=== PATIENT | female | born 1990 | race Hispanic/Latino ===

== ENCOUNTER 2016-09-18 09:38 | Emergency (ER) | payer OTHER ==
[~2016-09-18] VITALS: Ht 154.9 cm; Wt 48.1 kg
[~2016-09-18 09:38] MED LIST: ASPI-1148 PO; CIPR-231 PO; CYCL5TAB PO; FERR-83 PO; PNV1TABL72 PO; RANI150T11 PO
[2016-09-18 09:45] VITALS: BP 136/81; PULSE 65; RESP 14; O2SAT 100
--- NOTE | 2016-09-18 10:06 | ED.REPORT ---
HPI-General Illness Date of Service Sep 18, 2016 ED Provider: Leonarda Montano MD The pt is 26 y/o female w/ a hx of a UTI, pyelonephritis, perirenal abscess, renal abscess, and tubulo interstitial nephritis presenting to the ED complaining of left flank pain onset 4 days ago. She is also experiencing a headache, dizziness, and R arm pain. Her last period was in the beginning of August and normal and has been using an IUD for the last ten years. Denies, fever , dysuria, diarrhea, or vomiting. Nursing Notes Stated Complaint: FELLING WEAK/DIZZY Chief Complaint: L flank pain Nursing Notes Reviewed: Yes Allergies: Coded Allergies: No Known Drug Allergies (Unverified Allergy, Unknown, 01/13/16) Uncoded Allergies: nkda (Allergy, Unknown, 01/13/16) Scheduled Ciprofloxacin (Cipro) 500 Mg Tablet 500 MG PO BID Ferrous Sulfate (Ferrous Sulfate) 325 Mg Tablet 325 MG PO TIDWM Pnv with Ca,No.72/Iron/FA ( Plus Tablet) 1 Each Tablet 1 TAB PO DAILY Ranitidine (Zantac) 150 Mg Tablet 150 MG PO BID Scheduled PRN Aspirin/Acetaminophen/Caffeine (Kfysrmg-Kbwhjkmghfwsr-Aghk Tab) 250 Mg-250 Mg- 65 Mg Tablet 1 EACH PO DAILY PRN PRN Headache Cyclobenzaprine (Cyclobenzaprine) 5 Mg Tablet 5 MG PO TID PRN PRN For Spasm General Time Seen by MD: 09:57 Chief Complaint Other (L flank pain ) Hx Obtained From: Patient Arrived By: Walk-in Sudden in Onset?: Yes Onset Occurred: 4 days ago Symptom Duration: Since onset Recent Healthcare: Recent doctor visit, Recent hospitalization Similar Sx Previous: Yes Past Medical History Past Medical History G 3 P3 UTI Pyelonephritis Perirenal abscess Renal abscess Tubulo interstitial nephritis Past Surgical History Denies Smoking History Never Smoker Social History Alcohol Use: "Social" Other Social History: Lives with children Ambulatory Status Independent Review of Systems Full Review of Systems Constitutional: Denies: Fever GI: Denies: Diarrhea, Vomiting Female: Reports: Flank pain (L side), Denies: Dysuria Musculoskeletal: Reports: Extremity pain (R arm ) Neurologic: Reports: Dizziness, Headache Complete sys rev & neg: except as marked. Physical Exam Vital Signs Vital Signs Date Time Temp Pulse Resp B/P Pulse Ox O2 Delivery O2 Flow Rate FiO2 09/18/16 14:11 36.8 58 16 108/68 98 Room Air 09/18/16 09:45 36.7 65 14 136/81 100 Room Air Initial VS: Reviewed General/Constitutional: Awake, Alert Appearance / Presentation: Positive: Ill appearing/not toxic Respiratory / Chest: Atraumatic, Breath sounds NL, Breath sounds = bilat, No respiratory distress, No rales, No rhonchi, No wheezing Cardiovascular: Heart rate NL, Regular rhythm, Heart sounds NL Abdomen: Atraumatic, Soft, Non-tender, BS normoactive Back: Full range of motion, No CVA tenderness No lumbar tenderness Flank pain not reproducible on exam Upper Extremities Upper Extremity / MS: Full range of motion, No deformity Skin: No rash, Warm, Dry Hickey on L side of neck Neurologic: Oriented X3, Speech NL Psychiatric: Affect NL, Mood NL Interpretation & Diagnostics Lab Results Interpretation Result Diagram: 09/18/16 1022 09/18/16 1022 Test 09/18/16 10:22 09/18/16 12:47 White Blood Count 10.3th/mm3 (3.8-10.1) Red Blood Count 4.58mil/mm3 (3.90-5.20) Hemoglobin 13.9g/dL (12.0-15.6) Hematocrit 42.6% (35.0-46.0) Mean Corpuscular Volume 93.0fL (81-100) Mean Corpuscular Hemoglobin 30.3pg (27.0-35.0) Mean Corpuscular Hemoglobin Concent 32.6% (32.0-37.0) Red Cell Distribution Width 12.5% (12.3-15.4) Platelet Count 223bil/L (150-400) Neutrophils (%) (Auto) 63.3% (40-74) Lymphocytes (%) (Auto) 26.6% (14-46) Monocytes (%) (Auto) 8.8% (4-12) Eosinophils (%) (Auto) 0.6% (0-5) Basophils (%) (Auto) 0.6% (0-3) Sodium Level 138mEq/L (134-144) Potassium Level 3.9mEq/L (3.5-5.2) Chloride Level 99mEq/L (97-108) Carbon Dioxide Level 22mmol/L (18-29) Blood Urea Nitrogen 7mg/dL (6-20) Creatinine 0.59mg/dL (0.57-1.00) Estimat Glomerular Filtration Rate 175mL/min (>59) Glucose Level 97mg/dL (60-99) Calcium Level 10.2mg/dL (8.5-10.1) Total Bilirubin 0.6mg/dL (0.0-1.2) Aspartate Amino Transf (AST/SGOT) 19U/L (0-50) Alanine Aminotransferase (ALT/SGPT) 15U/L (0-32) Alkaline Phosphatase 77U/L (25-150) Total Protein 8.3g/dL (6.4-8.4) Albumin 4.7g/dL (3.4-5.0) Lipase 34U/L (13-60) Urine Color Straw (YELLOW) Urine Appearance Hazy (CLEAR,HAZY) Urine pH 6.0 (5.0-8.0) Urine Specific [place] 1.005 (1.003-1.035) Urine Protein Negativemg/dL (NEG,TRACE) Urine Glucose (UA) Negativemg/dL (NEGATIVE) Urine Ketones 15mg/dL (NEGATIVE) Urine Occult Blood Negative (NEGATIVE) Urine Nitrite Negative (NEGATIVE) Urine Bilirubin Negative (NEGATIVE) Urine Urobilinogen Normalmg/dL (NORMAL) Urine Leukocyte Esterase Trace (NEGATIVE) Urine RBC 0-2/hpf (0-2) Urine WBC 0-5/hpf (0-5) Urine Epithelial Cells Occasional/hpf (NONE-MOD) Urine Crystals None seen (NONE SEEN) Urine Bacteria Few/hpf (NONE-FEW) Urine Hyaline Casts None/lpf (NONE) Urine Granular Casts None seen (NONE SEEN) Urine Waxy Casts None seen (NONE SEEN) Urine Red Blood Cell Casts None seen (NONE SEEN) Urine White Blood Cell Casts None seen (NONE SEEN) Urine Mucus None seen (None Seen) Urine Trichomonas None seen (NONE SEEN) Urine Yeast None (NONE SEEN) Urinalysis Comment None Urine Culture Reflexed Indicated Re-Eval/Medical Decision Source of Hx: Old records Time of Eval: 13:54 Re-Evaluation/Progress Note: Pt rechecked. Informed pt of plan for treatment. Pt understands and agrees with plan for treatment. F/U instructions and RTER warnings given. All questions addressed. Counseled Regarding: Diagnosis, Lab results, Need for follow-up, When/why to return to ED Discharge & Departure Primary Impression: Viral syndrome Disposition: Home Discharge Condition All VS Reviewed: Yes Condition: Stable Additional Instructions: Thank you for coming into the emergency department today. You were diagnosed with viral syndrome. I do not see any signs of overwhelming infection but have not seen the results of the urine test yet. I will call you and let you know as soon as the results come back. Referrals: Lorrie Dobbs MD (PCP) Scribe Attestation Portions of this note were transcribed by Paulo Lopez. I, Dr. Montano personally performed the history, physical exam and medical decision-making; I reviewed and confirmed the accuracy of the information in the transcribed note. Signed by : Annalisa Osullivan, 09/18/16 and 1108. copies to: Lorrie Dobbs MD, Shawna L MD Sep 18, 2016 10:06 Paulo Lopez Sep 18, 2016 11:01
[2016-09-18] MEDS ORDERED: 0.9% Sodium Chloride 1,000 ML IV ONE (10:13)
[2016-09-18 10:29] LABS: BASOPHILS % (AUTO) 0.6 % (0-3); EOSINOPHILS % (AUTO) 0.6 % (0-5); MONOCYTES % (AUTO) 8.8 % (4-12); Mean Corpuscular Hemoglobin 30.3 pg (27.0-35.0); NEUTROPHILS % (AUTO) 63.3 % (40-74); Platelet Count 223 bil/L (150-400)
[2016-09-18 13:16] LABS: APPEARANCE,URINE HAZY (CLEAR,HAZY); COLOR,URINE STRAW (YELLOW)
[2016-09-18 13:17] LABS: OCCULT BLOOD,URINE NEGATIVE (NEGATIVE); UROBILINOGEN,URINE NORMAL (NORMAL)
[2016-09-18 14:11] VITALS: BP 108/68; PULSE 58; RESP 16; O2SAT 98
== END 2016-09-18 14:12 | disposition home or self-care (01) ==
LOC: SED 09:38
DX: B34.9 Viral infection, unspecified (principal); Z87.440 Personal history of urinary (tract) infections
CPT/HCPCS: 36415; 80053; 81000; 81025; 83690; 85025; 87086; 87088; 87147; 96361; 96374; 99284; J1885; J7030